=== PATIENT | female | born 1930 | race Caucasian/White ===

== ENCOUNTER 2016-09-07 07:46 | Day surgery (SDC) | payer MEDICARE, BC ==
[~2016-09-07] VITALS: Ht 152.4 cm; Wt 69.1 kg
[~2016-09-07 07:46] MED LIST: ALLO100T PO; AMLO5 PO; HYDR12.56 PO; LISI-360 PO; PRED10 PO
[2016-09-07 08:07] VITALS: BP 153/81; PULSE 51; RESP 20; TEMP 97.6; O2SAT 91
[2016-09-07] MEDS ORDERED: SODIUM CHLOR 0.9% 1000 ML IV SCH (09:00)
[2016-09-07] MEDS ORDERED: SYSTSOL EACH EYE (09:02)
[2016-09-07] MEDS ORDERED: [UNRECOGNIZED DRUG - CODE] (09:02)
[2016-09-07] MEDS ORDERED: COMB0.2S RIGHT EYE (09:02)
[2016-09-07 09:19] LABS: AUTOMATED NEUTROPHIL # 1.8 TH/MM3 (1.8-7.7); BASOPHIL % 0.7 % (0.0-2.0); EOSINOPHIL # 0.3 TH/MM3 (0-0.4); EOSINOPHIL % 5.9 % (0.0-4.0); HEMATOCRIT 38.5 % (35.0-46.0); LYMPH % 42.9 % (9.0-44.0); LYMPHOCYTE # 1.9 TH/MM3 (1.0-4.8); MEAN CELL VOLUME 84.6 FL (80.0-100.0); MEAN CORPUSCULAR HEMOGLOBIN 27.5 PG (27.0-34.0); MEAN CORPUSCULAR HGB CONC 32.5 % (32.0-36.0); MONO % 10.1 % (0.0-8.0); NEUT % 40.4 % (16.0-70.0); RED BLOOD COUNT 4.55 MIL/MM3 (4.00-5.30); RED CELL DISTRIBUTION WIDTH 16.1 % (11.6-17.2); WHITE BLOOD COUNT 4.4 TH/MM3 (4.0-11.0)
[2016-09-07 09:22] LABS: HEMO FLAGS AUTO DIFF
[2016-09-07 09:25] LABS: PLATELET COUNT 17 TH/MM3 (150-450)
[2016-09-07 09:31] LABS: PROTHROMBIN TIME - PATIENT 11.1 SEC (9.8-11.6)
[2016-09-07] MEDS ORDERED: LIDOCAINE 1%/EPINEPHrine 1:100,000 SOLN 20 ML VIAL ONE (09:42)
[2016-09-07 10:03] LABS: PLATELET ESTIMATE SMEAR RARE (NORMAL); PLATELET MORPHOLOGY NORMAL (NORMAL); SCAN/DIFF AUTO DIFF CONFIRMED
[2016-09-07] MEDS ORDERED: fentaNYL CITRATE 250 MCG/5 ML AMP ONE (10:35)
[2016-09-07] MEDS ORDERED: MIDAZOLAM HCL 5 MG/5 ML VIAL ONE (10:35)
--- NOTE | 2016-09-07 11:23 | PD.RAD ---
Post CT Procedure Prog Note Procedure Date: Sep 07, 2016 Supervising Radiologist: Owen Emmanuel Proceduralist/Assist: marilee caballero dr van Anesthesia: Conscious Sedation Plan of Activity Patient to Unit: [facility] Patient Condition: Good See PACS Report for procedural detail/treatment Owen Emmanuel MD Sep 07, 2016 11:23
[2016-09-07 11:30] VITALS: BP 163/76; PULSE 44; RESP 16; TEMP 97.4; O2SAT 91
[2016-09-07 11:45] VITALS: BP 156/67; PULSE 45; RESP 20; O2SAT 95
[2016-09-07 11:59] LABS: BONE MARROW PROCESSING COMPLETE; IRON STAIN DONE; JENNER GIEMSA STAIN DONE
[2016-09-07 12:15] VITALS: BP 141/77; PULSE 52; RESP 20; O2SAT 97
[2016-09-07 12:45] VITALS: BP 137/70; PULSE 44; RESP 20; O2SAT 97
[2016-09-07 13:15] VITALS: BP 166/72; PULSE 52; RESP 20; O2SAT 97
--- NOTE | 2016-09-07 15:46 | RADRPT ---
EXAM DATE/TIME: 09/07/2016 11:00 [place] COMPARISON: No previous studies available for comparison. INDICATIONS : Pancytopenia. SEDATION TIME: 30 minutes BIOPSY SITE: Right ilium. MEDICATION(S): 1.) 1.5 mg midazolam (Versed) IV 2.) 75 mcg fentanyl (Sublimaze) IV DEVICE(S): 1.) 12 gauge Bone marrow biopsy needle MEDICAL HISTORY : Hypertension. Osteoarthritis. Chronic thrombocytopenia. SURGICAL HISTORY : Appendectomy. ENCOUNTER: Initial ACUITY: 1 day PAIN SCORE: 0/10 LOCATION: pelvis A total of one core specimen(s) were obtained and sent to the laboratory for pathologic evaluation. PROCEDURE: 1. CT guided bone marrow biopsy. 2. Conscious sedation with continuous EKG and oximetry monitoring. 3. EKG and oximetry remained stable throughout the procedure. Prior to the procedure informed consent was obtained. Any appropriate prior imaging studies were rev iewed. Using automated exposure control and adjustment of the mA and/or kV according to patient size , radiation dose was kept as low as reasonably achievable to obtain optimal diagnostic quality images . DICOM format image data is available electronically for review and comparison. The site was prepped in a sterile fashion. Full sterile technique was used, including cap, mask, charlee rile gloves and gown and a large sterile sheet. Hand hygiene and 2% chlorhexidine and/or betadine/al cohol prep was utilized per protocol for cutaneous antisepsis. The skin and subcutaneous tissues wer e infiltrated with local anesthetic solution. With CT guidance the previously identified target was localized. Biopsy was performed using the presc ribed needle as above. Following biopsy marrow aspiration was performed with repeat puncture. Adequa te hemostasis was obtained with compression at the puncture site. Follow-up CT scan reveals no hemorrhage. Conscious sedation was performed with the prescribed dosages and duration as above in the presence of an independent trained radiology nurse to assist in the monitoring of the patient. EKG and oximetry remained stable throughout the procedure. The patient tolerated the procedure well and there were no complications. The patient was sent to Radiology Outpatient Unit in stable condition. CONCLUSION: 1. Uncomplicated CT guided bone marrow aspirate. 2. Uncomplicated CT guided bone marrow biopsy. Owen Emmanuel MD on September 07, 2016 at 15:44 Board Certified Radiologist. This report was verified electronically.
== END 2016-09-07 13:30 | disposition home or self-care (01) ==
LOC: HRAD 07:46 → HRIP 07:53 → HRAD 13:30
PROVIDERS: ATTEND Internal Medicine Hematology & Oncology
DX: D61.818 Other pancytopenia (principal); Z01.812 Encounter for preprocedural laboratory examination
CPT/HCPCS: 38221; 77012; 85025; 85097; 85610; 85730; 88184; 88185; 88237; 88264; 88280; 88305; 88311; 88313; 88341; 88342; 99152; 99153; C1830; G0364; J2250; J3010; J7030